=== PATIENT | female | born 1995 | race Caucasian/White ===

== ENCOUNTER 2019-05-17 08:32 | Emergency (ER) | payer SELFPAY ==
[~2019-05-17] VITALS: Ht 149.9 cm; Wt 55.3 kg
[2019-05-17 09:21] VITALS: BP 113/67
[2019-05-17] MEDS ORDERED: DOCUSATE 100 MG/10 ML SOLUTION. AS STA (09:33)
[2019-05-17] MEDS ORDERED: OFLO5DRO7 EACH EAR (09:42)
--- NOTE | 2019-05-17 09:42 | PHYS DOC ---
Past Medical History Past Medical History: No Pertinent History Past Surgical History: Tonsillectomy, Other Additional Past Surgical Histo: EYE,ORAL Alcohol Use: None Drug Use: None Adult General Chief Complaint Chief Complaint: EARACHE/EAR PAIN HPI HPI Patient is a 23 year old female with no significant medical history who presents to the ED today complaining of left ear pain that began in the beginning of the week and is currently in both ears. Patient denies any fever, cough, congestion. She describes the pain as sharp and constant. Denies any exacerbating or relieving factors Review of Systems Review of Systems Constitutional: Denies fever or chills [] Eyes: Reports bilateral ear pain. Denies change in visual acuity, redness, or eye pain [] HENT: Denies nasal congestion or sore throat [] Respiratory: Denies cough or shortness of breath [] Cardiovascular: No additional information not addressed in HPI [] GI: Denies abdominal pain, nausea, vomiting, bloody stools or diarrhea [] : Denies dysuria or hematuria [] Musculoskeletal: Denies back pain or joint pain [] Integument: Denies rash or skin lesions [] Neurologic: Denies headache, focal weakness or sensory changes [] All other systems were reviewed and found to be within normal limits, except as documented in this note. Allergies Allergies Allergies Coded Allergies Type Severity Reaction Last Updated Verified Sulfa (Sulfonamide Antibiotics) Allergy Unknown 05/17/19 Yes codeine Allergy Unknown 05/17/19 Yes Physical Exam Physical Exam Constitutional: Well developed, well nourished, no acute distress, non-toxic appearance. [] HENT: Normocephalic, atraumatic, bilateral external ears normal, oropharynx moist, no oral exudates, nose normal. [] Left ear canal appears erythematous, TM not well visualized but there is mild amount of cerumen noted that is obscuring the TM. Right ear canal is erythematous, swollen, narrowed with yellow exudate The tragus is painful. TM appears normal. Eyes: PERRLA, EOMI, conjunctiva normal, no discharge. [] Neck: Normal range of motion, no tenderness, supple, no stridor. [] Cardiovascular:Heart rate regular rhythm, no murmur [] Lungs & Thorax: Bilateral breath sounds clear to auscultation [] Abdomen: Bowel sounds normal, soft, no tenderness, no masses, no pulsatile masses. [] Skin: Warm, dry, no erythema, no rash. [] Back: No tenderness, no CVA tenderness. [] Extremities: No tenderness, no cyanosis, no clubbing, ROM intact, no edema. [] Neurologic: Alert and oriented X 3, normal motor function, normal sensory func tion, no focal deficits noted. [] Psychologic: Affect normal, judgement normal, mood normal. [] Current Patient Data Vital Signs Vital Signs Date Time Temp Pulse Resp B/P (MAP) Pulse Ox O2 Delivery O2 Flow Rate FiO2 05/17/19 09:21 97.7 89 18 113/67 (82) 100 Room Air 97.7 EKG EKG [] Radiology/Procedures Radiology/Procedures [] Course & Med Decision Making Course & Med Decision Making Pertinent Labs and Imaging studies reviewed. (See chart for details) This is a 23-year-old female patient presenting to the ED today with otitis externa primarily to the right canal-D/c to tobramycin. She was noted to have cerumen in the left ear canal, Colace/Debrox recommended for cerumen impaction. F/u with ENT. OTC pain relievers. Dragon Disclaimer Dragon Disclaimer This electronic medical record was generated, in whole or in part, using a voice recognition dictation system. Departure Departure Impression: Primary Impression: Otitis externa of right ear Additional Impression: Excessive cerumen in left ear canal Disposition: 01 HOME, SELF-CARE Condition: STABLE Referrals: HERNAN BATES MD (PCP) follow up in one week TRACE DIAZ MD follow up in one week Patient Instructions: Cerumen Impaction-SportsMed, Otitis Externa Additional Instructions: You were evaluated in the emergency room for ear infection. We wrote you antibiotic eardrops. Use them as prescribed. Use them as ordered. Follow-up with your doctor in 1-2 weeks on the provided doctor Scripts Ofloxacin (OFLOXACIN) 5 Ml Drops 5 DROP EACH EAR BID, #10 ML Prov: LORENA RASMUSSEN APRN 05/17/19 Problem Qualifiers Primary Impression: Otitis externa of right ear Otitis externa type: unspecified type Chronicity: acute Qualified Codes: H60.501 - Unspecified acute noninfective otitis externa, right ear LORENA RASMUSSEN APRN May 17, 2019 09:42
== END 2019-05-17 10:10 | disposition home or self-care (01) ==
LOC: ER 08:32
DX: H60.501 Unspecified acute noninfective otitis externa, right ear (principal); H61.22 Impacted cerumen, left ear; Z90.89 Acquired absence of other organs; Z88.2 Allergy status to sulfonamides; Z88.5 Allergy status to narcotic agent
CPT/HCPCS: 99283

== ENCOUNTER 2019-05-21 11:28 | Emergency (ER) | payer SELFPAY ==
[~2019-05-21] VITALS: Ht 149.9 cm; Wt 55.3 kg
[~2019-05-21 11:28] MED LIST: OFLO5DRO7 EACH EAR
[2019-05-21 11:38] VITALS: BP 118/73
[2019-05-21] MEDS ORDERED: NEOM10DR32 EACH EAR (12:05)
--- NOTE | 2019-05-21 12:05 | PHYS DOC ---
Past Medical History Past Medical History: No Pertinent History Past Surgical History: Tonsillectomy, Other Additional Past Surgical Histo: EYE,ORAL Alcohol Use: None Drug Use: None Adult General Chief Complaint Chief Complaint: EARACHE/EAR PAIN HPI HPI Patient is a 23 year old female that presents with right ear pain this been ongoing for a week and a half. The patient states that she was seen here several days ago and prescribed some drops that she cannot afford them. Reports 10 out of 10 pain and reduced hearing. Review of Systems Review of Systems Constitutional: Denies fever or chills [] Eyes: Denies change in visual acuity, redness, or eye pain [] HENT: Reports R ear pain. Respiratory: Denies cough or shortness of breath [] Cardiovascular: No additional information not addressed in HPI [] GI: Denies abdominal pain, nausea, vomiting, bloody stools or diarrhea [] : Denies dysuria or hematuria [] Musculoskeletal: Denies back pain or joint pain [] Integument: Denies rash or skin lesions [] Neurologic: Denies headache, focal weakness or sensory changes [] Endocrine: Denies polyuria or polydipsia [] Complete systems were reviewed and found to be within normal limits, except as documented in this note. Allergies Allergies Allergies Coded Allergies Type Severity Reaction Last Updated Verified Sulfa (Sulfonamide Antibiotics) Allergy Intermediate 05/17/19 Yes codeine Allergy Intermediate 05/17/19 Yes Physical Exam Physical Exam Constitutional: Well developed, well nourished, no acute distress, non-toxic appearance. [] HENT: Normocephalic, atraumatic, right external ear has edema and discharge, oropharynx moist, no oral exudates, nose normal. [] Eyes: PERRLA, EOMI, conjunctiva normal, no discharge. [] Neck: Normal range of motion, no tenderness, supple, no stridor. [] Skin: Warm, dry, no erythema, no rash. [] Back: No tenderness, no CVA tenderness. [] Extremities: No tenderness, no cyanosis, no clubbing, ROM intact, no edema. [] Neurologic: Alert and oriented X 3, normal motor function, normal sensory function, no focal deficits noted. [] Psychologic: Affect normal, judgement normal, mood normal. [] Current Patient Data Vital Signs Vital Signs Date Time Temp Pulse Resp B/P (MAP) Pulse Ox O2 Delivery O2 Flow Rate FiO2 05/21/19 11:38 98.7 72 16 118/73 (88) 99 Room Air 98.7 EKG EKG [] Radiology/Procedures Radiology/Procedures [] Course & Med Decision Making Course & Med Decision Making Pertinent Labs and Imaging studies reviewed. (See chart for details) Discussed with patient that her ear was not improving because she had not filled the prescription given to her. Patient did not fill script due to cost. Will give GoodRx card and showed patient that the cost would be in the $33 range. She agreed to get it filled. Dragon Disclaimer Dragon Disclaimer This electronic medical record was generated, in whole or in part, using a voice recognition dictation system. Departure Departure Impression: Primary Impression: Otitis externa of right ear Disposition: HOME, SELF-CARE Condition: STABLE Referrals: HERNAN BATES MD (PCP) Patient Instructions: Otitis Externa Additional Instructions: Thank you for visiting [facility]. We appreciate you trusting us with your care. If any additional problems come up don't hesitate to return to visit us. Please follow up with your primary care provider so they can plan additional care if needed and know about the problem that you had. If symptoms worsen come back to the Emergency Department. Any concerning symptoms that start such as chest pain, shortness of air, weakness or numbness on one side of the body, running high fevers or any other concerning symptoms return to the ER. You have been prescribed an antibiotic today to help fight your infection. Please take all of the antibiotic as directed. If after 48 hours the infection is not improving, please return for more care. If the infection worsens, return to ER for additional care. Scripts Neomycin/Polymyxin B Sulf/Hc ([id number]-[id number]-YV EAR SUSP) 10 Ml Drops.susp 4 DROP EACH EAR QID for 7 Days, #10 ML Prov: BROOK MOLINA APRN 05/21/19 Problem Qualifiers Primary Impression: Otitis externa of right ear Otitis externa type: unspecified type Chronicity: acute Qualified Codes: H60.501 - Unspecified acute noninfective otitis externa, right ear BROOK MOLINA APRN May 21, 2019 12:05
== END 2019-05-21 12:30 | disposition home or self-care (01) ==
LOC: ER 11:28
DX: H60.501 Unspecified acute noninfective otitis externa, right ear (principal); Z88.2 Allergy status to sulfonamides; Z88.5 Allergy status to narcotic agent
CPT/HCPCS: 99283

== ENCOUNTER 2019-05-22 09:56 | Emergency (ER) | payer SELFPAY ==
[~2019-05-22] VITALS: Ht 149.9 cm; Wt 55.3 kg
[~2019-05-22 09:56] MED LIST changes: +NEOM10DR32 EACH EAR
[2019-05-22 10:11] VITALS: BP 111/78
--- NOTE | 2019-05-22 10:31 | PHYS DOC ---
Past Medical History Past Medical History: No Pertinent History Past Surgical History: Tonsillectomy, Other Additional Past Surgical Histo: EYE,ORAL Alcohol Use: None Drug Use: None Adult General Chief Complaint Chief Complaint: EARACHE/EAR PAIN HPI HPI Patient is a 23 year old female that is known to this provider. Patient was seen yesterday for otitis externa. The patient states that she had her prescription filled and started taking her drops yesterday however that she was up all night due to the pain and presents today wanting a work note. The patient denies any other complaints. Review of Systems Review of Systems Constitutional: Denies fever or chills [] Eyes: Denies change in visual acuity, redness, or eye pain [] HENT: Reports R ear pain. Denies nasal congestion or sore throat [] Respiratory: Denies cough or shortness of breath [] Cardiovascular: No additional information not addressed in HPI [] GI: Denies abdominal pain, nausea, vomiting, bloody stools or diarrhea [] : Denies dysuria or hematuria [] Musculoskeletal: Denies back pain or joint pain [] Integument: Denies rash or skin lesions [] Neurologic: Denies headache, focal weakness or sensory changes [] Endocrine: Denies polyuria or polydipsia [] Complete systems were reviewed and found to be within normal limits, except as documented in this note. Allergies Allergies Allergies Coded Allergies Type Severity Reaction Last Updated Verified Sulfa (Sulfonamide Antibiotics) Allergy Intermediate 05/17/19 Yes codeine Allergy Intermediate 05/17/19 Yes Physical Exam Physical Exam Constitutional: Well developed, well nourished, no acute distress, non-toxic appearance. [] HENT: Normocephalic, atraumatic, right external ear is edematous, and has a exudate. This has improved since yesterday. Left tympanic membrane is pearly roach, oropharynx moist, no oral exudates, nose normal. [] Eyes: PERRLA, EOMI, conjunctiva normal, no discharge. [] Neck: Normal range of motion, no tenderness, supple, no stridor. [] Cardiovascular:Heart rate regular rhythm, no murmur [] Lungs & Thorax: Bilateral breath sounds clear to auscultation [] Abdomen: Bowel sounds normal, soft, no tenderness, no masses, no pulsatile masses. [] Skin: Warm, dry, no erythema, no rash. [] Neurologic: Alert and oriented X 3, normal motor function, normal sensory function, no focal deficits noted. [] Psychologic: Affect normal, judgement normal, mood normal. [] EKG EKG [] Radiology/Procedures Radiology/Procedures [] Course & Med Decision Making Course & Med Decision Making Pertinent Labs and Imaging studies reviewed. (See chart for details) A medical screening exam was performed on this patient and the patient does not appear to be having a medical emergency. Her symptoms are not of sufficient severity and within reasonable medical probability it is unlikely the absence of immediate medical attention would result in placing the health of the individual (or, with respect to a woman, the health of the woman or her unborn child) in serious jeopardy, serious impairment to bodily functions, or serious dysfunction of any bodily organ or part. If , the patient is not in labor Dragon Disclaimer Dragon Disclaimer This electronic medical record was generated, in whole or in part, using a voice recognition dictation system. Departure Departure Impression: Primary Impression: Encounter for medical screening examination Disposition: HOME, SELF-CARE Condition: STABLE Referrals: NO PCP (PCP) BROOK MOLINA APRN May 22, 2019 10:31
== END 2019-05-22 10:11 | disposition home or self-care (01) ==
LOC: ER 09:56
DX: H92.01 Otalgia, right ear (principal); Z88.2 Allergy status to sulfonamides; Z88.5 Allergy status to narcotic agent
CPT/HCPCS: 99281

== ENCOUNTER 2020-09-25 18:06 | Emergency (ER) | payer SELFPAY ==
[~2020-09-25] VITALS: Ht 149.9 cm; Wt 56.8 kg
--- NOTE | 2020-09-25 19:31 | PHYS DOC ---
Past Medical History Past Medical History: No Pertinent History Past Surgical History: Tonsillectomy, Other Additional Past Surgical Histo: EYE,ORAL Smoking Status: Never Smoker Alcohol Use: None Drug Use: None General Adult EDM: Chief Complaint: SKIN RASH/ABSCESS HPI: HPI: Patient is a 24 year old female with no significant medical history presenting today complaining of redness to her bilateral breast that began on Tuesday. Patient denies any fever. Denies any chance she is . Denies any personal family history of breast cancer. Review of Systems: Review of Systems: Constitutional: Denies fever or chills. [] Eyes: Denies change in visual acuity. [] HENT: Denies nasal congestion or sore throat. [] Respiratory: Denies cough or shortness of breath. [] Cardiovascular: Denies chest pain or edema. [] GI: Denies abdominal pain, nausea, vomiting, bloody stools or diarrhea. [] : Denies dysuria. [] Musculoskeletal: Denies back pain or joint pain. [] Integument: Reports bilateral breast redness Neurologic: Denies headache, focal weakness or sensory changes. [] Psychiatric: Denies depression or anxiety. [] Heart Score: Risk Factors: Risk Factors: DM, Current or recent (<one month) smoker, HTN, HLP, family history of CAD, obesity. Risk Scores: Score 0 - 3: 2.5% MACE over next 6 weeks - Discharge Home Score 4 - 6: 20.3% MACE over next 6 weeks - Admit for Clinical Observation Score 7 - 10: 72.7% MACE over next 6 weeks - Early Invasive Strategies Current Medications: Current Medications Medications (Trade) Dose Ordered Sig/Dorita Start Time Stop Time Status Last Admin Dose Admin Ceftriaxone Sodium (Rocephin) 1 gm 1X ONCE 09/25/20 19:15 09/25/20 19:16 UNV Fentanyl Citrate (Fentanyl 2ml Vial) 50 mcg PRN Q15MIN PRN 09/25/20 19:15 09/26/20 19:14 UNV Sodium Chloride 1,000 ml @ 1,000 mls/hr 1X ONCE 09/25/20 19:15 09/25/20 20:14 UNV Allergies: Allergies: Allergies Coded Allergies Type Severity Reaction Last Updated Verified Sulfa (Sulfonamide Antibiotics) Allergy Intermediate 05/17/19 Yes codeine Allergy Intermediate 05/17/19 Yes Physical Exam: PE: Constitutional: Well developed, well nourished, no acute distress, non-toxic appearance. [] HENT: Normocephalic, atraumatic, bilateral external ears normal, oropharynx moist, no oral exudates, nose normal. [] Eyes: PERRLA, EOMI, conjunctiva normal, no discharge. [] Neck: Normal range of motion, no tenderness, supple, no stridor. [] Cardiovascular:Heart rate regular rhythm, no murmur [] Lungs & Thorax: Bilateral breath sounds clear to auscultation [] Abdomen: Bowel sounds normal, soft, no tenderness, no masses, no pulsatile masses. [] Skin: Pendulous of bilateral breast, tattoos to bilateral breasts, moderate cellulitis noted on the left breast diffusely, skin is sloughing off over the areas of cellulitis. No drainage. There is trace cellulitis to the nipples. Right breast with mild amount of cellulitis on the lateral aspect of the breast. No nipple involvement. No nipple dimpling bilaterally. No palpable lymph nodes bilaterally. No nipple drainage. There is also trace cellulitis on patient's mid upper abdomen. Back: No tenderness, no CVA tenderness. [] Extremities: No tenderness, no cyanosis, no clubbing, ROM intact, no edema. [] Neurologic: Alert and oriented X 3, normal motor function, normal sensory function, no focal deficits noted. [] Psychologic: Affect normal, judgement normal, mood normal. [] EKG: EKG: [] Radiology/Procedures: Radiology/Procedures: []PROCEDURE: BREAST BILATERAL Exam: Ultrasound bilateral breasts Indication: Cellulitis, redness Technique: Real-time grayscale and color Doppler images of the bilateral breasts were obtained by the department sprinkler repair technician. Comparisons: None FINDINGS: Right breast was scanned from 1:00 to 3:00 left breast was scanned from 8:00 to 12:00 as well as in the retroareolar area. No focal fluid collection or mass is identified. No edema. IMPRESSION: No evidence for abscess or mass in the scanned areas is described above. Follow- up with breast clinic is recommended Electronically signed by: Teresita Chaves MD (09/25/2020 9:08 PM) [facility] DICTATED and SIGNED BY: TERESITA CHAVES MD DATE: 09/25/20 [id number] 0 Course & Med Decision Making: Course & Med Decision Making Pertinent Labs and Imaging studies reviewed. (See chart for details) This is a 24-year-old female patient presenting to the ED today with cellulitis to bilateral breast as well as upper abdomen, symptoms for 5 days. Negative urine hCG Bilateral breast ultrasounds were negative for abscess. CBC 11.5, CMP with no acute findings, lactic is normal. CRP 17.6 Patient was given Rocephin IV in the ED. Tetanus updated. Recommended admission for IV antibiotics. She declined. Discharged on clindamycin first dose in the ED. Follow-up with PCP. Hilda Disclaimer: Hilda Disclaimer: This electronic medical record was generated, in whole or in part, using a voice recognition dictation system. Departure Departure Impression: Primary Impression: Cellulitis of right breast Additional Impressions: Cellulitis of left breast Abdominal wall cellulitis Disposition: 01 DC HOME SELF CARE/HOMELESS Condition: STABLE Referrals: NO PCP (PCP) follow up with your doctor in 1-2 weeks Patient Instructions: Cellulitis, [id number] Additional Instructions: You were evaluated in the emergency room with cellulitis on your breast and abdomen. We started you on antibiotics, ensure you complete them. Keep your breast clean. Follow-up with your primary care doctor in 1 to 2 weeks please come back to the ED at any point symptoms worsen Scripts Naproxen (NAPROXEN) 500 Mg Tablet 1 TAB PO BID for pain, #20 TAB 0 Refills Prov: LORENA RASMUSSEN APRN 09/25/20 Hydrocodone Bit/Acetaminophen (HYDROCODONE-APAP 5-325 ) 1 Tab Tablet 1 TAB PO PRN Q6HRS PRN for PAIN, #20 TAB 0 Refills Prov: LORENA RASMUSSEN APRN 09/25/20 Clindamycin Hcl (CLINDAMYCIN HCL) 150 Mg Capsule 3 CAP PO TID, #90 CAP Prov: LORENA RASMUSSEN APRN 09/25/20 LORENA RASMUSSEN APRN Sep 25, 2020 19:31
[2020-09-25 20:01] LABS: BASO % 0 % (0-3); EOS # 0.2 x10^3/uL (0.0-0.7); EOS % 2 % (0-3); HEMATOCRIT 35.7 % (36.0-47.0); HEMOGLOBIN 11.9 g/dL (12.0-15.5); LYMPH # 2.2 x10^3/uL (1.0-4.8); LYMPH % 19 % (24-48); MEAN CORPUSCULAR HEMOGLOBIN 29 pg (25-35); MEAN CORPUSCULAR HGB CONC 33 g/dL (31-37); MEAN CORPUSCULAR VOLUME 86 fL (79-100); MONO # 0.9 x10^3/uL (0.0-1.1); MONO % 8 % (0-9); NEUT # 8.1 x10^3/uL (1.8-7.7); NEUT % 71 % (31-73); PLATELET COUNT 213 x10^3/uL (140-400); RED BLOOD COUNT 4.14 x10^6/uL (3.50-5.40); RED CELL DISTRIBUTION WIDTH 14.2 % (11.5-14.5); WHITE BLOOD COUNT 11.5 x10^3/uL (4.0-11.0)
[2020-09-25] MEDS: IV NORMAL SALINE 1000ML BAG 1,000 ML IV ONE (20:02)
[2020-09-25] MEDS: cefTRIAXone IV Push 1 GM VIAL. IVP ONE (20:03)
[2020-09-25] MEDS: fentaNYL PF VIAL 100 MCG/2 ML VIAL IV PRN (20:03)
[2020-09-25 20:07] LABS: CALCIUM 8.9 mg/dL (8.5-10.1); CREATININE 0.8 mg/dL (0.6-1.0); GFR 86.7; POTASSIUM 3.4 mmol/L (3.5-5.1)
[2020-09-25 20:13] LABS: ALBUMIN 3.6 g/dL (3.4-5.0); ALBUMIN/GLOBULIN RATIO 1.1 (1.0-1.7); TOTAL BILIRUBIN 0.3 mg/dL (0.2-1.0)
--- NOTE | 2020-09-25 21:10 | RAD ---
Exam: Ultrasound bilateral breasts Indication: Cellulitis, redness Technique: Real-time grayscale and color Doppler images of the bilateral breasts were obtained by the department senior dynamics crm developer. Comparisons: None FINDINGS: Right breast was scanned from 1:00 to 3:00 left breast was scanned from 8:00 to 12:00 as well as in t he retroareolar area. No focal fluid collection or mass is identified. No edema. IMPRESSION: No evidence for abscess or mass in the scanned areas is described above. Follow-up with breast clinic is recommended Electronically signed by: Teresita Jacobs MD (09/25/2020 9:08 PM) [facility]
[2020-09-25] MEDS ORDERED: HYDR-2761 PO (21:32)
[2020-09-25] MEDS ORDERED: CLIN150C15 PO (21:32)
[2020-09-25] MEDS ORDERED: NAPR-514 PO (21:32)
[2020-09-25 21:45] VITALS: BP 104/60
[2020-09-25] MEDS: CLINDAMYCIN HCL 150 MG CAPSULE. PO ONE (21:47)
[2020-09-25] MEDS: DIPH,PERTUSS(ACELL),TET VAC/PF 0.5 ML SYRINGE. VAX IM ONE (21:50)
== END 2020-09-25 21:59 | disposition home or self-care (01) ==
LOC: ER 18:06
DX: N61.0 Mastitis without abscess (principal); L03.311 Cellulitis of abdominal wall; Z88.2 Allergy status to sulfonamides; Z88.5 Allergy status to narcotic agent
CPT/HCPCS: 36415; 76641; 80053; 81025; 83605; 85025; 86140; 87040; 90471; 90715; 96361; 96374; 96375; 99285; J0696; J3010; J7030

== ENCOUNTER 2021-04-13 11:32 | Emergency (ER) | payer OTHER ==
[~2021-04-13] VITALS: Ht 152.4 cm; Wt 62.8 kg
[~2021-04-13 11:32] MED LIST changes: +CLIN150C16 PO; +HYDR-2761 PO; +NAPR-514 PO
[2021-04-13 12:45] VITALS: BP 128/69
[2021-04-13 14:07] LABS: BILIRUBIN,URINE NEGATIVE (NEG); CLARITY,URINE CLEAR; COLOR,URINE YELLOW; NITRITE,URINE NEGATIVE (NEG); PROTEIN,URINE NEGATIVE (NEG-TRACE); UROBILINOGEN,URINE 0.2 mg/dL (0.2 mg/dL)
[2021-04-13 14:11] LABS: BACTERIA,URINE FEW /HPF (0-FEW); RBC,URINE 0 /HPF (0-2); WBC,URINE 0 /HPF (0-4)
[2021-04-13] MEDS ORDERED: CIPR7.5D EACH EAR (14:22)
--- NOTE | 2021-04-13 14:23 | PHYS DOC ---
Past Medical History Past Medical History: No Pertinent History Additional Past Medical Histor: left ear drum fracture (BROOK DRAPER APRN) Past Surgical History: Tonsillectomy Additional Past Surgical Histo: lasix eye surgery (BROOK DRAPER APRN) Smoking Status: Never Smoker Alcohol Use: None Drug Use: None (BROOK DRAPER APRN) General Adult EDM: Chief Complaint: EARACHE/EAR PAIN HPI: HPI: Patient is a 25 year old female presents to the emergency department comp laining of left earache x3 days. Patient denies any other physical complaints or physical concerns. Patient reports her last menstrual cycle was 5 weeks ago, reports she is 5 weeks with a due date of December 05, 1 para 0. Patient reports she sees OB for [facility] problems. Patient denies any problems with this , denies vaginal discharge, denies vaginal bleeding, denies rashes to her vagina, denies STI concerns. Patient reports her only symptom is her left earache. Patient states she has not taken anything for the pain because her friends told her it would hurt her baby. Patient denies any other physical complaints or physical concerns. (BROOK DRAPER APRN) Review of Systems: Review of Systems: 14 body systems of review of systems have been reviewed. See HPI for pertinent positives and negative responses, otherwise all other systems are negative, nonpertinent or noncontributory. Constitutional: Negative except as outlined in HPI above. Skin: Negative except as outlined in HPI above. Eyes: Negative except as outlined in HPI above. HENT: Negative except as outlined in HPI above. Respiratory: Negative except as outlined in HPI above. Cardiovascular: Negative except as outlined in HPI above. GI: Negative except as outlined in HPI above. : Negative except as outlined in HPI above. Musculoskeletal: Negative except as outlined in HPI above. Integument: Negative except as outlined in HPI above. Neurologic: Negative except as outlined in HPI above. Endocrine: Negative except as outlined in HPI above. Lymphatic: Negative except as outlined in HPI above. Psychiatric: Negative except as outlined in HPI above. (BROOK DRAPER APRN) Heart Score: C/O Chest Pain: No Risk Factors: Risk Factors: DM, Current or recent (<one month) smoker, HTN, HLP, family history of CAD, obesity. Risk Scores: Score 0 - 3: 2.5% MACE over next 6 weeks - Discharge Home Score 4 - 6: 20.3% MACE over next 6 weeks - Admit for Clinical Observation Score 7 - 10: 72.7% MACE over next 6 weeks - Early Invasive Strategies (BROOK DRAPER APRN) Allergies: Allergies: Allergies Coded Allergies Type Severity Reaction Last Updated Verified Sulfa (Sulfonamide Antibiotics) Allergy Intermediate hives 04/13/21 Yes codeine Allergy Intermediate hives 04/13/21 Yes (BROOK DRAPER APRN) Physical Exam: PE: Constitutional: Well developed, well nourished, no acute distress, non-toxic appearance. 25-year-old female in no apparent distress. HENT: Normocephalic, atraumatic. Oropharynx moist, pink, no deep tissue infectious process appreciated, no drooling, no trismus. Patient speaking in normal voice tones. Right TM and external auditory canal within normal limits, left TM not fully visualize related to swelling and edema of external auditory canal with purulent drainage, TM does appear intact with visual landmarks within normal limits. No lymphadenopathy of the head or neck appreciated. Eyes: Conjunctiva normal, no discharge. Neck: Normal range of motion, no stridor. Cardiovascular: No cyanosis appreciated, distal cap refill less than 2 seconds. Lungs & Thorax: Patient is in no respiratory distress, no audible adventitious lung sounds appreciated. Abdomen: Nontender, no abnormalities noted. Skin: Warm, dry, no erythema, no rash. Back: No tenderness, no deformities. Extremities: No tenderness, no cyanosis, no clubbing, ROM intact, no edema. Neurologic: Alert and oriented X 3, normal motor function, normal sensory function, no focal deficits noted. Psychologic: Affect normal, judgement normal, mood normal. (BROOK DRAPER APRN) Current Patient Data: Labs: Laboratory Tests Test 04/13/21 13:30 Urine Collection Type Unknown Urine Color Yellow Urine Clarity Clear Urine pH 7.0 (<5.0-8.0) Urine Specific Braymer 1.020 (1.000-1.030) Urine Protein Negative mg/dL (NEG-TRACE) Urine Glucose (UA) Negative mg/dL (NEG) Urine Ketones (Stick) Negative mg/dL (NEG) Urine Blood Negative (NEG) Urine Nitrite Negative (NEG) Urine Bilirubin Negative (NEG) Urine Urobilinogen Dipstick 0.2 mg/dL (0.2 mg/dL) Urine Leukocyte Esterase Negative (NEG) Urine RBC 0 /HPF (0-2) Urine WBC 0 /HPF (0-4) Urine Squamous Epithelial Cells Mod /LPF Urine Bacteria Few /HPF (0-FEW) Vital Signs: Vital Signs Date Time Temp Pulse Resp B/P (MAP) Pulse Ox O2 Delivery O2 Flow Rate FiO2 04/13/21 12:45 98.2 85 18 128/69 100 Room Air 98.2 (BROOK DRAPER APRN) EKG: EKG: [] (BROOK DRAPER APRN) Radiology/Procedures: Radiology/Procedures: [] (BROOK DRAPER APRN) Course & Med Decision Making: Course & Med Decision Making Pertinent Labs and Imaging studies reviewed. (See chart for details) 25-year-old female, vital signs reviewed, presents emergency department complaint of left earache x3 days. Physical examination consistent with otitis externa, will order urinalysis assay, pending treatment at this time. The patient's urine is not infected, discussed findings with patient, will prescribe Ciprodex eardrops and sent to pharmacy. Patient is amenable to ED discharge planning. Discussed with the patient all findings and diagnostic testing as well as the need to follow-up with their primary care provider for further evaluation and treatment or return to the ED if any new or worsening symptoms. Strict return precautions were also discussed at length, the patient voiced understanding and agreement with the discharge planning. The patient was nontoxic in appearance, in no apparent distress, and hemodynamically stable at the time of disposition. (BROOK DRAPER APRN) Course & Med Decision Making I have reviewed and agree with all pertinent clinical information above including history, exam, and recommendations. aJss Olivo DO (JASS OLIOV DO) Hilda Disclaimer: Hilda Disclaimer: This electronic medical record was generated, in whole or in part, using a voice recognition dictation system. (BROOK DRAPER APRN) Departure Departure Impression: Primary Impression: Otitis externa Qualified Codes: H60.502 - Unspecified acute noninfective otitis externa, left ear Disposition: HOME / SELF CARE / HOMELESS Condition: GOOD Referrals: NO PCP (PCP) Patient Instructions: Otitis Externa Additional Instructions: You were seen today in the emergency department for a left earache, you have an infection called otitis externa. I have started you on a medication called Ciprodex you will place 4 drops twice a day for the next 10 days. Your urine was examined today because you are , there was no sign of infection. Please keep your follow-up appointments with your [facility] related to your . You may take [id number] Tylenol for ear pain. Thank you for visiting our Emergency Department. It was a pleasure taking care of you today in the emergency department and we appreciate you trusting us with your care. If any additional problems come up don't hesitate to return to visit us. Please follow up with your primary care provider so they can plan additional care if needed and know about the problem that you had. If symptoms worsen come back to the Emergency Department. Any concerning symptoms that start such as chest pain, shortness of air, weakness or numbness on one side of the body, running high fevers or any other concerning symptoms return to the ER. Scripts Ciprofloxacin Hcl/Dexameth (CIPRODEX OTIC SUSPENSION) 7.5 Ml Drops.susp 4 DROP EACH EAR BID for OTITIS EXTERNA, #7.5 ML 0 Refills Prov: BROOK DRAPER APRN 04/13/21 BROOK DRAPER APRN Apr 13, 2021 14:23 JASS OLIVO DO Apr 13, 2021 16:27
== END 2021-04-13 14:27 | disposition home or self-care (01) ==
LOC: ER 11:32
DX: O26.891 Other specified pregnancy related conditions, first trimester (principal); H60.502 Unspecified acute noninfective otitis externa, left ear; Z3A.01 Less than 8 weeks gestation of pregnancy
CPT/HCPCS: 81001; 99283